=== PATIENT | female | born 1955 | race Caucasian/White ===

== ENCOUNTER 2020-05-17 08:57 | Observation (INO) ==
[2020-05-17] MEDS ORDERED: Ipratropium/Albuterol Neb 3 ML IH ONE (09:08)
[2020-05-17 09:34] LABS: Basophils % 0.2 %; Eosinophils % 0.6 %; Hematocrit 44.2 % (35.3-44.9); Hemoglobin 13.7 g/dL (11.5-15.4); Immature Granulocytes % 0.4 % (0-4); Lymphocytes % 19.7 %; Mean Corpuscular Hemoglobin 30.2 pg (28.0-33.3); Mean Corpuscular Volume 97.4 fL (83.0-100.0); Mean Platelet Volume 10.2 fL (9.4-12.4); Monocytes # 0.6 K/mcL (0.0-1.3); Monocytes % 11.4 %; Neutrophils # 3.3 K/mcL (1.6-8.9); Platelet Count 179 K/mcL (140-400); Red Blood Count 4.54 M/mcL (3.82-4.97); Red Cell Distribution Width 12.8 % (11.5-14.5); Segmented Neutrophils % 67.7 %; White Blood Count 4.9 K/mcL (4.3-11.1)
[2020-05-17 09:53] LABS: BUN/Creatinine Ratio 22 (6-26); Blood Urea Nitrogen 23 mg/dL (8-23); Calcium 10.5 mg/dL (8.6-10.3); Carbon Dioxide 24 mEq/L (23-29); Chloride 99 mEq/L (98-107); Glucose 131 mg/dL (70-105); Osmolality,Calculated 279 (280-300); Potassium 4.6 mEq/L (3.5-5.1); Sodium 132 mEq/L (136-145); eGFR For African Americans > 60 (> 60); eGFR For Non-African Americans 54 (> 60)
[2020-05-17] MEDS ORDERED: Azithromycin 500 MG in 0.9 % Sodium Chloride 250 ML IVPB ONE (11:00)
[2020-05-17] MEDS ORDERED: Acetaminophen 325 MG TABLET PO PRN (13:12)
[2020-05-17] MEDS ORDERED: Naloxone 0.4 MG/ML INJ IVP PRN ×2 (13:12→15:16)
[2020-05-17] MEDS ORDERED: Ondansetron ODT 4 MG TAB.RAPDIS SL PRN (13:12)
[2020-05-17] MEDS ORDERED: Albuterol 2.5 MG/3 ML NEBULIZER IH PRN (13:14)
[2020-05-17 14:40] LABS: Basophils % 0.2 %; Hematocrit 44.5 % (35.3-44.9); Hemoglobin 13.9 g/dL (11.5-15.4); Immature Granulocytes % 0.2 % (0-4); Lymphocytes # 0.5 K/mcL (0.6-4.6); Lymphocytes % 11.1 %; Mean Corpuscular HGB Conc 31.2 g/dL (31.6-35.5); Mean Corpuscular Hemoglobin 30.2 pg (28.0-33.3); Mean Corpuscular Volume 96.7 fL (83.0-100.0); Mean Platelet Volume 10.7 fL (9.4-12.4); Monocytes # 0.4 K/mcL (0.0-1.3); Monocytes % 8.4 %; Neutrophils # 3.6 K/mcL (1.6-8.9); Platelet Count 173 K/mcL (140-400); Red Cell Distribution Width 12.9 % (11.5-14.5); Segmented Neutrophils % 80.1 %; White Blood Count 4.5 K/mcL (4.3-11.1)
[2020-05-17] MEDS ORDERED: Levalbuterol Neb 1.25 MG/3 ML IH PRN (14:48)
[2020-05-17] MEDS ORDERED: Levalbuterol Neb 1.25 MG/3 ML IH SCH (16:00)
[2020-05-17 16:31] LABS: VBG HCO3 24 mEq/L (21-27); VBG PCO2 39 mmHg (41-51); VBG PH 7.41 pH Units (7.32-7.42); VBG PO2 125 mmHg (25-50)
[2020-05-17] MEDS: Levalbuterol 1 PUFF INHALER IH SCH ×2 (17:16→21:10)
[2020-05-17] MEDS: *HR* Heparin 5,000 UNIT/ML VIAL SQ SCH (17:55)
[2020-05-17] MEDS: *HR* LORazepam 2 MG/ML VIAL IVP PRN (22:45)
[2020-05-18] MEDS ORDERED: Benzonatate 100 MG CAPSULE PO PRN (01:05)
[2020-05-18] MEDS ORDERED: Saline Nasal Spray 44 ML BOTTLE NS PRN (01:52)
[2020-05-18] MEDS: Levalbuterol 1 PUFF INHALER IH SCH ×2 (03:39→11:44)
[2020-05-18] MEDS: *HR* Heparin 5,000 UNIT/ML VIAL SQ SCH ×2 (05:02→17:05)
[2020-05-18 06:32] LABS: Basophils % 0.2 %; Hemoglobin 14.3 g/dL (11.5-15.4); Immature Granulocytes % 0.2 % (0-4); Mean Corpuscular HGB Conc 31.8 g/dL (31.6-35.5); Mean Corpuscular Hemoglobin 30.3 pg (28.0-33.3); Mean Corpuscular Volume 95.3 fL (83.0-100.0); Mean Platelet Volume 10.7 fL (9.4-12.4); Monocytes # 0.6 K/mcL (0.0-1.3); Monocytes % 11.6 %; Neutrophils # 3.2 K/mcL (1.6-8.9); Platelet Count 201 K/mcL (140-400); Red Blood Count 4.72 M/mcL (3.82-4.97); Red Cell Distribution Width 12.5 % (11.5-14.5); White Blood Count 4.8 K/mcL (4.3-11.1)
[2020-05-18 06:57] LABS: BUN/Creatinine Ratio 26 (6-26); Blood Urea Nitrogen 24 mg/dL (8-23); Calcium 10.1 mg/dL (8.6-10.3); Carbon Dioxide 20 mEq/L (23-29); Chloride 102 mEq/L (98-107); Glucose 149 mg/dL (70-105); Osmolality,Calculated 285 (280-300); Sodium 134 mEq/L (136-145); eGFR For African Americans > 60 (> 60); eGFR For Non-African Americans > 60 (> 60)
[2020-05-18 07:03] LABS: Lactate Dehydrogenase 134 Units/L (140-271)
[2020-05-18 07:07] LABS: Ferritin 88 ng/mL (10-120)
[2020-05-18] MEDS: Azithromycin 500 MG in 0.9 % Sodium Chloride 250 ML IVPB SCH (07:56)
[2020-05-18] MEDS: *HR* LORazepam 2 MG/ML VIAL IVP PRN ×2 (07:56→23:54)
[2020-05-18 08:25] LABS: C-Reactive Protein 64 mg/L (Less than 10)
[2020-05-18] MEDS ORDERED: dexAMETHasone 4 MG TABLET PO SCH (09:00)
[2020-05-18 09:13] LABS: Estimated Average Glucose 148 mg/dl; Hemoglobin A1C 6.8 %
[2020-05-18 15:31] LABS: ABG Base Excess 3 mEq/L (-2 to 3); ABG HCO3 28 mEq/L (21-27); ABG Oxygen Saturation 89 % (95-98); ABG PCO2 47 mmHg (35-45); ABG PH 7.39 pH Units (7.32-7.45); ABG PO2 58 mmHg (85-104); ABG TCO2 30 mEq/L (20-26)
[2020-05-18] MEDS ORDERED: Albuterol 2.5 MG/3 ML NEBULIZER IH PRN (23:53)
[2020-05-19] MEDS: *HR* Heparin 5,000 UNIT/ML VIAL SQ SCH (05:36)
[2020-05-19 07:08] LABS: Hematocrit 44.1 % (35.3-44.9); Hemoglobin 14.1 g/dL (11.5-15.4); Immature Granulocytes % 0.3 % (0-4); Lymphocytes # 1.3 K/mcL (0.6-4.6); Lymphocytes % 20.6 %; Mean Corpuscular Volume 96.9 fL (83.0-100.0); Mean Platelet Volume 10.3 fL (9.4-12.4); Monocytes # 0.6 K/mcL (0.0-1.3); Neutrophils # 4.3 K/mcL (1.6-8.9); Platelet Count 212 K/mcL (140-400); Red Blood Count 4.55 M/mcL (3.82-4.97); Red Cell Distribution Width 12.6 % (11.5-14.5); Segmented Neutrophils % 69.1 %; White Blood Count 6.2 K/mcL (4.3-11.1)
[2020-05-19 07:37] LABS: BUN/Creatinine Ratio 24 (6-26); Blood Urea Nitrogen 23 mg/dL (8-23); Calcium 9.7 mg/dL (8.6-10.3); Carbon Dioxide 25 mEq/L (23-29); Chloride 100 mEq/L (98-107); Glucose 133 mg/dL (70-105); Osmolality,Calculated 288 (280-300); Potassium 4.2 mEq/L (3.5-5.1); Sodium 136 mEq/L (136-145); eGFR For African Americans > 60 (> 60); eGFR For Non-African Americans 58 (> 60)
[2020-05-19 07:43] VITALS: BP 152/93
[2020-05-19] MEDS: Azithromycin 500 MG in 0.9 % Sodium Chloride 250 ML IVPB SCH (08:31)
[2020-05-19] MEDS ORDERED: Cholecalciferol (D-3) 1,000 UNIT (25MCG) TABLET PO SCH (09:00)
[2020-05-19] MEDS ORDERED: allopurinoL 300 MG TABLET PO SCH (09:00)
[2020-05-19] MEDS ORDERED: Ascorbic Acid 500 MG TABLET PO SCH (09:00)
[2020-05-19] MEDS ORDERED: lisinopriL 10 MG TABLET PO SCH (09:00)
[2020-05-19] MEDS ORDERED: Multivit/Ca/Min/Fe/FA 1 TAB TABLET PO SCH (09:00)
[2020-05-19] MEDS ORDERED: Budesonide/Formoterol 160/4.5 1 PUFF INH IH SCH (10:00)
== END 2020-05-19 14:53 | disposition home or self-care (01) ==
LOC: 3BNU 08:57 → EMEROOARM 08:57 → SUATTDRO 11:26 → 3BNU 12:35
PROVIDERS: ADMIT Internal Medicine; ATTEND Student in an Organized Health Care Education/Training Program